=== PATIENT | male | born 1990 | race Caucasian/White ===

== ENCOUNTER 2022-06-15 12:09 | Emergency (ER) | payer OTHER, SELFPAY ==
[2022-06-15] MEDS ORDERED: MORPHINE 2 MG/ML SYR ONE (12:41)
[2022-06-15] MEDS ORDERED: ONDANSETRON 4 MG/2 ML VIAL ONE (12:42)
[2022-06-15] MEDS ORDERED: KETOROLAC 30 MG/ML INJ ONE (12:42)
--- NOTE | 2022-06-15 12:46 | RAD REPORT ---
EXAM DESCRIPTION: CT - Abdomen Pelvis Wo Contrast - 06/15/2022 12:33 pm CLINICAL HISTORY: Abdominal pain. sdf COMPARISON: No comparisons TECHNIQUE: CT imaging of the abdomen and pelvis was performed without contrast. Solid organ, bowel a nd vascular assessment is limited due to lack of IV and oral contrast. All CT scans are performed using dose optimization technique as appropriate and may include automated exposure control or mA/KV adjustment according to patient size. FINDINGS: The lower lung putnam are clear. The liver, spleen, pancreas, adrenal glands are within normal limits for a limited non-contrast exami nation. There is a 12 x 7 mm stone in the proximal left ureter resulting in moderate left hydronephrosis. Multiple small calculi are present in the calices of the right kidney. No bowel obstruction, free air, free fluid or abscess. The appendix is normal. The osseous structures are within normal limits. IMPRESSION: 12 x 7 mm calculus is present in the proximal left ureter resulting mild to moderate lef t hydronephrosis. Punctate right nephrolithiasis without hydronephrosis. A limited non-contrast examination was performed as detailed.
[2022-06-15 13:06] LABS: Absolute Lymphocytes (CBC) 1.1 K/uL (0.7-4.9); Lymphocytes % 12.2 % (15.3-44.8); MCV 87.6 fL (80-100); MPV 8.9 fL (7.6-11.3); RBC Red Blood Cell Count 4.69 M/uL (4.33-5.43)
[2022-06-15] MEDS ORDERED: NA CHLORIDE 0.9% 1,000 ML ONE (13:16)
[2022-06-15 13:21] LABS: Albumin 4.5 g/dL (3.4-5.0); Bilirubin Total 1.3 mg/dL (0.2-1.0); Potassium 3.7 mmol/L (3.5-5.1); Protein, Total 8.2 g/dL (6.4-8.2)
[2022-06-15 13:21] LABS: Urine Blood 3+ (Negative); Urine Glucose Negative (Negative); Urine Protein 1+ (Negative); Urine Specific Gravity 1.025 (1.005-1.030)
--- NOTE | 2022-06-15 13:49 | EDPHYS ---
Physician Documentation [facility] Name: Shahid Doty Age: 32 yrs Sex: Male : 1990 Arrival Date: 06/15/2022 Time: 12:12 Bed 8 Private MD: ED Physician Ad Ge HPI: 06/15 13:27 This 32 yrs old Male presents to ER via EMS with complaints of Abdominal Pain.jl9 13:27 The patient presents with abdominal pain right lower quadrant, in the left lower jl9 quadrant. Onset: The symptoms/episode began/occurred this morning. The symptoms do not radiate. Associated signs and symptoms: Pertinent positives: nausea. The symptoms are described as sharp. Modifying factors: The symptoms are alleviated by nothing, the symptoms are aggravated by nothing. Severity of pain: in the emergency department the pain is a 7 / 10. Historical: - Allergies: 12:17 No Known Allergies; em6 - Home Meds: 12:17 None [Active]; em6 - PMHx: 12:17 None; em6 - Immunization history:: Adult Immunizations unknown. - Social history:: Smoking status: unknown. ROS: 13:27 Constitutional: Negative for fever, chills, and weight loss, Eyes: Negative for injury, jl9 pain, redness, and discharge, ENT: Negative for injury, pain, and discharge, Neck: Negative for injury, pain, and swelling, Cardiovascular: Negative for chest pain, palpitations, and edema, Respiratory: Negative for shortness of breath, cough, wheezing, and pleuritic chest pain. 13:27 Back: Negative for injury and pain, : Negative for injury, bleeding, discharge, and swelling, MS/Extremity: Negative for injury and deformity, Skin: Negative for injury, rash, and discoloration, Neuro: Negative for headache, weakness, numbness, tingling, and seizure, Psych: Negative for depression, anxiety, suicide ideation, homicidal ideation, and hallucinations, Allergy/Immunology: Negative for hives, rash, and allergies, Endocrine: Negative for neck swelling, polydipsia, polyuria, polyphagia, and marked weight changes, Hematologic/Lymphatic: Negative for swollen nodes, abnormal bleeding, and unusual bruising. 13:27 Abdomen/GI: Positive for abdominal pain, nausea. Exam: 13:28 Constitutional: This is a well developed, well nourished patient who is awake, alert, jl9 and in no acute distress. Head/Face: Normocephalic, atraumatic. Eyes: Pupils equal round and reactive to light, extra-ocular motions intact. Lids and lashes normal. Conjunctiva and sclera are non-icteric and not injected. Cornea within normal limits. Periorbital areas with no swelling, redness, or edema. ENT: Mucous membranes moist. Neck: Trachea midline, no thyromegaly or masses palpated, and no cervical lymphadenopathy. Supple, full range of motion without nuchal rigidity, or vertebral point tenderness. No Meningismus. Chest/axilla: Normal chest wall appearance and motion. Nontender with no deformity. No lesions are appreciated. Cardiovascular: Regular rate and rhythm with a normal S1 and S2. No gallops, murmurs, or rubs. Normal PMI, no JVD. No pulse deficits. Respiratory: Lungs have equal breath sounds bilaterally, clear to auscultation and percussion. No rales, rhonchi or wheezes noted. No increased work of breathing, no retractions or nasal flaring. Abdomen/GI: Soft, non-tender, with normal bowel sounds. No distension or tympany. No guarding or rebound. No evidence of tenderness throughout. 13:28 Back: No spinal tenderness. No costovertebral tenderness. Full range of motion. Skin: Warm, dry with normal turgor. Normal color with no rashes, no lesions, and no evidence of cellulitis. MS/ Extremity: Pulses equal, no cyanosis. Neurovascular intact. Full, normal range of motion. Neuro: Awake and alert, GCS 15, oriented to person, place, time, and situation. Cranial nerves II-XII grossly intact. Motor strength 5/5 in all extremities. Sensory grossly intact. Cerebellar exam normal. Normal gait. Psych: Awake, alert, with orientation to person, place and time. Behavior, mood, and affect are within normal limits. 13:28 Abdomen/GI: Inspection: abdomen appears normal, Bowel sounds: normal, Palpation: mild abdominal tenderness. Vital Signs: 12:10 BP 135 / 96; Pulse 51; Resp 14; Temp 97.8; Pulse Ox 98% on R/A; Weight 54.43 kg; Height em6 5 ft. 10 in. (177.80 cm); Pain 7/10; 13:15 BP 131 / 102; Pulse 48; Resp 14; Pulse Ox 100% on R/A; em6 12:10 Body Mass Index 17.22 (54.43 kg, 177.80 cm) em6 MDM: 12:13 Patient medically screened. jl9 13:28 Data reviewed: vital signs, nurses notes. jl9 13:32 Response to treatment: the patient's symptoms have resolved after treatment, the jl9 patient's pain is gone, Patient reports being pain free and would like to go home. . 13:47 Counseling: I had a detailed discussion with the patient and/or guardian regarding: the [facility] historical points, exam findings, and any diagnostic results supporting the discharge/admit diagnosis, lab results, radiology results, the need for outpatient follow up, to return to the emergency department if symptoms worsen or persist or if there are any questions or concerns that arise at home, Patient pain free and would like to be discharged. . 06/15 12:25 Order name: CBC with Diff; Complete Time: 13:24 [facility] 06/15 12:25 Order name: CMP; Complete Time: 13:24 [facility] 06/15 12:25 Order name: Lipase; Complete Time: 13:24 [facility] 06/15 12:25 Order name: CT Abd/Pelvis - Without Contrast; Complete Time: 12:50 [facility] 06/15 13:22 Order name: Urine Dipstick-Ancillary; Complete Time: 13:24 [facility] 06/15 12:25 Order name: IV Saline Lock; Complete Time: 13:04 [facility] 06/15 12:25 Order name: Labs collected and sent; Complete Time: 13:05 [facility] 06/15 12:25 Order name: Urine Dipstick-Ancillary (obtain specimen); Complete Time: 13:23 [facility] Administered Medications: 12:40 Drug: Zofran (Ondansetron) 4 mg Route: IVP; Site: right antecubital; em6 13:23 Follow up: Response: No adverse reaction em6 12:40 Drug: Ketorolac 15 mg Route: IVP; Site: right antecubital; em6 13:23 Follow up: Response: No adverse reaction em6 12:40 Drug: morphine 2 mg Route: IVP; Infused Over: 4 mins; Site: right antecubital; em6 13:23 Follow up: Response: No adverse reaction; RASS: Alert and Calm (0) em6 13:10 Drug: NS 0.9% 1000 ml Route: IV; Rate: 125 ml/hr; Site: right antecubital; em6 14:17 Follow up: Response: No adverse reaction; IV Intake: 1000ml em6 Disposition: 18:54 Co-signature as Attending Physician, Ad Ge DO I was immediately available on-site ms3 in the emergency department for consultation in the care of the patient.. Disposition Summary: 06/15/22 13:49 Discharge Ordered Location: Home jl9 Condition: Stable jl9 Diagnosis - Kidney Stone/ Calculus in urethra jl9 Followup: jl9 - With: Private Physician - When: 1 - 2 days - Reason: Recheck today's complaints, Continuance of care, Re-evaluation by your physician Followup: jl9 - With: Sonu Davis MD - When: 1 - 2 days - Reason: Recheck today's complaints, Continuance of care, Re-evaluation by your physician Discharge Instructions: - Discharge Summary Sheet jl9 - Kidney Stones, [id number] jl9 Forms: - Medication Reconciliation Form jl9 - Thank You Letter jl9 - Antibiotic Education jl9 - Prescription Opioid Use jl9 Prescriptions: - ketorolac 10 mg Oral tablet - take 1 tablet by ORAL route every 6 hours As needed for up to 5 days total use; jl9 20 tablet; Refills: 0, Product Selection Permitted - tamsulosin 0.4 mg Oral capsule - take 1 capsule by ORAL route once daily 1/2 hour following the same meal each jl9 day; 14 capsule; Refills: 0, Product Selection Permitted - ondansetron 8 mg Oral tablet,disintegrating - take 1 tablet by ORAL route every 8 hours As needed; 15 tablet; Refills: 0, jl9 Product Selection Permitted Signatures: Dispatcher [employer] EDMS Ad Ge DO DO ms3 Porter Veliz jl9 Yolanda Landry RN RN em6
--- NOTE | 2022-06-15 13:49 | ER ---
Nurse's Notes [facility] Name: Shahid Doty Age: 32 yrs Sex: Male : 1990 Arrival Date: 06/15/2022 Time: 12:12 Bed 8 Private MD: Diagnosis: Kidney Stone/ Calculus in urethra Presentation: 06/15 12:10 Chief complaint: EMS states: "patient got up to restroom and felt LLQ pain currently at em6 a 7 and radiates to left side of pelvis. Patient states sharp pain. patient states bright orange urine. states not taking medication a the moment. no history nor surgical history". 12:10 Coronavirus screen: At this time, the client does not indicate any symptoms associated em6 with coronavirus-19. Ebola Screen: Patient negative for fever greater than or equal to 101.5 degrees Fahrenheit, and additional compatible Ebola Virus Disease symptoms. Initial Sepsis Screen: Does the patient meet any 2 criteria? No. Patient's initial sepsis screen is negative. Does the patient have a suspected source of infection? No. Patient's initial sepsis screen is negative. Risk Assessment: Do you want to hurt yourself or someone else? Patient reports no desire to harm self or others. Onset of symptoms was June 15, 2022. 12:10 Method Of Arrival: EMS: [facility] em6 12:10 Acuity: SHERRIE 3 em6 Triage Assessment: 12:15 General: Appears comfortable, Behavior is calm, cooperative. Pain: Complains of pain in em6 left lower quadrant Pain radiates to pelvis Pain currently is 7 out of 10 on a pain scale. Quality of pain is described as sharp, Pain began 4 hours ago. Is continuous. Historical: - Allergies: 12:17 No Known Allergies; em6 - Home Meds: 12:17 None [Active]; em6 - PMHx: 12:17 None; em6 - Immunization history:: Adult Immunizations unknown. - Social history:: Smoking status: unknown. Screenin:15 Abuse screen: Denies threats or abuse. Nutritional screening: No deficits noted. em6 Tuberculosis screening: No symptoms or risk factors identified. 12:40 Fall Risk IV access (20 points). Total Kaur Fall Scale indicates No Risk (0-24 pts). em6 Assessment: 12:18 General: Appears comfortable, Behavior is calm, cooperative, appropriate for age. Pain: em6 Complains of pain in left lower quadrant Pain radiates to pelvis Pain currently is 7 out of 10 on a pain scale. Quality of pain is described as sharp, Pain began 4 hours ago. Is continuous. Neuro: Murillo Agitation-Sedation Scale (RASS): 0 - Alert and Calm Level of Consciousness is awake, alert, obeys commands, Oriented to person, place, time, situation. Cardiovascular: Reports nausea, Heart tones present Capillary refill < 3 seconds Patient's skin is warm and dry. Respiratory: Airway is patent Respiratory effort is even, unlabored, Respiratory pattern is regular, symmetrical, Breath sounds are clear bilaterally. GI: Abdomen is flat, non-distended, Abd is soft and non tender Reports diarrhea, nausea. : Reports bright orange urine. EENT: No signs and/or symptoms were reported regarding the EENT system. Derm: Musculoskeletal: Circulation, motion, and sensation intact. Range of motion: intact in all extremities. 13:15 Reassessment: Patient appears in no apparent distress at this time. Patient and/or em6 family updated on plan of care and expected duration. Pain level reassessed. Patient is alert, oriented x 3, equal unlabored respirations, skin warm/dry/pink. Patient states symptoms have improved. Vital Signs: 12:10 BP 135 / 96; Pulse 51; Resp 14; Temp 97.8; Pulse Ox 98% on R/A; Weight 54.43 kg; Height em6 5 ft. 10 in. (177.80 cm); Pain 7/10; 13:15 BP 131 / 102; Pulse 48; Resp 14; Pulse Ox 100% on R/A; em6 12:10 Body Mass Index 17.22 (54.43 kg, 177.80 cm) em6 ED Course: 12:12 Patient arrived in ED. em6 12:13 Porter Veliz is PHCP. jl9 12:13 Ad Ge DO is Attending Physician. jl9 12:15 Triage completed. em6 12:16 Arm band placed on. em6 12:17 Patient has correct armband on for positive identification. Bed in low position. Call em6 light in reach. Side rails up X 1. Pulse ox on. NIBP on. Warm blanket given. 12:34 CT Abd/Pelvis - Without Contrast In Process Unspecified. EDMS 12:40 Inserted saline lock: 20 gauge in right antecubital area, using aseptic technique. em6 Blood collected. 13:49 Sonu Davis MD is Referral Physician. jl9 14:05 No provider procedures requiring assistance completed. IV discontinued, intact, em6 bleeding controlled, No redness/swelling at site. Pressure dressing applied. Administered Medications: 12:40 Drug: Zofran (Ondansetron) 4 mg Route: IVP; Site: right antecubital; em6 13:23 Follow up: Response: No adverse reaction em6 12:40 Drug: Ketorolac 15 mg Route: IVP; Site: right antecubital; em6 13:23 Follow up: Response: No adverse reaction em6 12:40 Drug: morphine 2 mg Route: IVP; Infused Over: 4 mins; Site: right antecubital; em6 13:23 Follow up: Response: No adverse reaction; RASS: Alert and Calm (0) em6 13:10 Drug: NS 0.9% 1000 ml Route: IV; Rate: 125 ml/hr; Site: right antecubital; em6 14:17 Follow up: Response: No adverse reaction; IV Intake: 1000ml em6 Medication: 12:17 VIS not applicable for this client. em6 Intake: 14:17 IV: 1000ml; Total: 1000ml. em6 Outcome: 13:49 Discharge ordered by . jl9 14:05 Condition: stable em6 14:05 Discharged to home ambulatory, with family. em6 14:05 Discharge instructions given to patient, family, Instructed on discharge instructions, follow up and referral plans. medication usage, Demonstrated understanding of instructions, follow-up care, medications, Prescriptions given X 3. 14:19 Patient left the ED. em6 Signatures: Dispatcher [employer] EDMS Porter Veliz jl9 Yolanda Landry, RN RN em6 Corrections: (The following items were deleted from the chart) 14:19 14:17 No provider procedures requiring assistance completed. em6 em6 14:19 14:17 IV discontinued, intact, bleeding controlled, No redness/swelling at site. em6 Pressure dressing applied, em6
[2022-06-15 14:24] VITALS: TEMP 97.8
[2022-06-15 14:26] VITALS: BP 131/102; O2SAT 100
== END 2022-06-15 14:19 | disposition home or self-care (01) ==
LOC: ER 12:09
DX: N20.0 Calculus of kidney (principal); N21.1 Calculus in urethra
CPT/HCPCS: 36415; 74176; 80053; 81003; 83690; 85025; 96374; 96375; 99284; J2270; J2405; J7030

== ENCOUNTER 2022-09-30 12:57 | Emergency (ER) | payer SELFPAY ==
--- OUTSIDE RECORDS SUMMARY | 2022-09-30 13:00 | XMS REPORT | Continuity of Care Document ---
:1990 Author Organization [facility] t Address [address] [place] [address] Care Team Providers Name Role Phone PCP, PATIENT DOES NOT HAVE A Primary Care Physician Unavaila SIRI Nguyen Attending Clinician Unavailable Siri Stearns NP Attending Clinician Lui HOLLOWAY Attending Clinician Unavailable Lui Herrera Attending Clinician Doctor Unassigned, [place] Attending Clinician Unavailable Problems Condition Condition Condition Status Onset Resolution Last Treating Co mments Source Name Details Category Date Date Treatment Clinician Date No known No known Disease Unive rs active active ity of problems problems [facility] Allergies, Adverse Reactions, Alerts Allergy Allergy Status Severity Reaction(s) Onset Inactive Treating Comm ents Source Name Type Date Date Clinician NO KNOWN Drug Active Univers ALLERGIE Class ity of S [facility] Social History Social Habit Start Date Stop Date Quantity Comments Source Exposure to 2022-08-08 2022-08-18 Not sure [facility] SARS-CoV-2 (event) 00:00:00 22:53:00 Medica l Branch Sex Ass[birth year] [facility] 00:00:00 00:00:00 Medical Branch Smoking Status Start Date Stop Date Source Tobacco smoking consumption [facility] [place] [facility] unknown Branch Medications Ordered Filled Start Stop Current Ordering Indication Dosage Frequency Signature Comments Components Source Medication Medication Date Date Medication? Clinician (SIG) Name Name HYDROcodone 2021- No 1{tbl} 1 tablet, Univers -acetaminop 12-06 Oral, ity of hen (NORCO 06:45: 05:40 ONCE, 1 [place] 5) 5-325 mg 00 :00 dose, On Medi yonathan tablet 1 Tue Branch tablet 12/06/21 at 0045, ELIEL amoxicillin 2021- No 500mg 500 mg, U nivers (TRIMOX) 12-06 Oral, ity of capsule 500 06:45: 05:40 [place] 1 [place] 00 :[place] dose, On Medical Tue Branch 12/06/21 at 0045, ELIEL
Re ason for Anti-Infec tive: Documented Infection< br>Documen esteban Infection Site: HEENT
D uration of Therapy: Other (see Comments) ibuprofen 2021- No 600mg 600 mg, Uni vers (IBU) 12-06 Oral, ity of tablet 600 06:45: 05:40 ONCE, 1 [place] as mg 00 :00 dose, On Medical Tue Branch 12/06/21 at 0045, ELIEL ibuprofen Yes [id number] 600mg Take 1 U nivers 600 mg 2-21 tablet by ity of tablet 00:00: mouth [place] 00 every 6 Medical (six) Branch hours as needed for Pain (scale 4-6). ibuprofen Yes [id number] 600mg Take 1 U nivers 600 mg 2-21 tablet by ity of tablet 00:00: mouth [place] 00 every 6 Medical (six) Branch hours as needed for Pain (scale 4-6). amoxicillin 2021- No [id number] 500mg Take 1 Univers 500 mg -02 01-04 capsule by ity of capsule 00:00: 05:59 mouth 3 [place] 00 :00 (three) Medical times Branch daily for 10 days. ondansetron Yes [id number] 8mg Take 1 Univers (ZOFRAN) 8 6-07 tablet by ity of mg tablet 00:00: mouth [place] 00 every 8 Medical (eight) Branch hours as needed for Nausea and Vomiting (N/V). ondansetron 2020-0 Yes [id number] 8mg Take 1 Univers (ZOFRAN) 8 6-07 tablet by ity of mg tablet 00:00: mouth [place] 00 every 8 Medical (eight) Branch hours as needed for Nausea and Vomiting (N/V). ondansetron 2020-0 Yes [id number] 8mg Take 1 Univers (ZOFRAN) 8 6-07 tablet by ity of mg tablet 00:00: mouth [place] 00 every 8 Medical (eight) Branch hours as needed for Nausea and Vomiting (N/V). chlorhexidi 2019-0 Yes [id number] 15mL Swish and Univers ne 0.12 % 2-09 spit out ity of mouthwash 00:00: 15 mL 2 [place] 00 (two) Medical times Branch daily. acetaminoph 2019-0 Yes [id number] 1{tbl} Take 1 Univers en-codeine 2-09 tablet by ity of 300-30 mg 00:00: mouth [place] tablet 00 every 4 Medical (four) Branch hours as needed for Pain (scale 7-10). naproxen 2019-0 Yes [id number] 500mg Take 1 Un [place] 500 mg 2-09 tablet by ity of tablet 00:00: mouth 2 [place] 00 (two) Medical times Branch daily with meals. chlorhexidi 2019-0 Yes [id number] 15mL Swish and Univers ne 0.12 % 2-09 spit out ity of mouthwash 00:00: 15 mL 2 [place] 00 (two) Medical times Branch daily. acetaminoph 2019-0 Yes [id number] 1{tbl} Take 1 Univers en-codeine 2-09 tablet by ity of 300-30 mg 00:00: mouth [place] tablet 00 every 4 Medical (four) Branch hours as needed for Pain (scale 7-10). naproxen 2019-0 Yes [id number] 500mg Take 1 Un [place] 500 mg 2-09 tablet by ity of tablet 00:00: mouth 2 [place] 00 (two) Medical times Branch daily with meals. chlorhexidi 2019-0 Yes [id number] 15mL Swish and Univers ne 0.12 % 2-09 spit out ity of mouthwash 00:00: 15 mL 2 [place] 00 (two) Medical times Branch daily. acetaminoph 2019-0 Yes [id number] 1{tbl} Take 1 Univers en-codeine 2-09 tablet by ity of 300-30 mg 00:00: mouth [place] tablet 00 every 4 Medical (four) Branch hours as needed for Pain (scale 7-10). naproxen Yes [id number] 500mg Take 1 Un [place] 500 mg 2-09 tablet by ity of tablet 00:00: mouth 2 [place] 00 (two) Medical times Branch daily with meals. NEXIUM 10 Yes AM Univers MG ORAL 2-06 ity of SUDR 21:06: [address] WELLBUTRIN Yes BID Univers 75 MG ORAL 2-06 ity of TAB 21:06: [address] NEXIUM 10 Yes AM Univers MG ORAL 2-06 ity of SUDR 21:06: [address] WELLBUTRIN Yes BID Univers 75 MG ORAL 2-06 ity of TAB 21:06: [address] NEXIUM 10 Yes AM Univers MG ORAL 2-06 ity of SUDR 21:06: [address] WELLBUTRIN Yes BID Univers 75 MG ORAL 2-06 ity of TAB 21:06: [address] Vital Signs Vital Name Observation Time Observation Value Comments Source Systolic blood 2022-08-19 03:51:00 117 mm[Hg] Univer sity of pressure [facility] Diastolic blood 2022-08-19 03:51:00 87 mm[Hg] Unive rsity [facility] Heart rate 2022-08-19 03:51:00 50 /min [facility] Body temperature 2022-08-19 03:51:00 36.61 Alicia [facility] Respiratory rate 2022-08-19 03:51:00 16 /min [facility] Body height 2022-08-19 03:51:00 175.3 cm [facility] Body weight 2022-08-19 03:51:00 54.432 kg [facility] BMI 2022-08-19 03:51:00 17.72 kg/m2 [facility] Oxygen saturation in 2022-08-19 03:51:00 99 /min [facility] blood by [facility] Pulse oximetry Branch Systolic blood 2021-12-06 04:44:00 122 mm[Hg] Univer sity of pressure [facility] Diastolic blood 2021-12-06 04:44:00 87 mm[Hg] Unive rsity of pressure [facility] Heart rate 2021-12-06 04:44:00 77 /min [facility] Body temperature 2021-12-06 04:44:00 37.11 Alicia [facility] 2021-12-06 04:44:00 16 /min [facility] Body height 2021-12-06 04:44:00 175.3 cm [facility] Body weight 2021-12-06 04:44:00 53.524 kg [facility] BMI 2021-12-06 04:44:00 17.43 kg/m2 [facility] Oxygen saturation in 2021-12-06 04:44:00 98 /min [facility] blood by [facility] Pulse oximetry Branch Procedures Procedure Date / Time Performed Performing Clinician Sour e CONSENT/REFUSAL FOR 2022-08-19 03:42:08 [facility] Branch TREATMENT NOTICE OF PRIVACY 2021-12-06 04:33:18 Doctor Unassigned, No Univ [facility] PRACTICES Name Medical Branch CONSENT/REFUSAL FOR 2021-12-06 04:33:04 [facility], [facility] Branch TREATMENT Encounters Start End Encounter Admission Attending Care Care Encounter Source Date/Time Date/Time Type Type Clinicians Facility Department ID 2022-08-18 2022-08-18 [id number] Univers 23:06:00 23:26:00 SIRI moore of [facility] 2022-08-18 2022-08-18 [facility] [id number] Univers 23:06:00 23:26:00 [id number] [id number] [facility] 084 Branch 2021-12-05 2021-12-05 Emergency X Lui HOLLOWAY [facility] ERT [id number] Univers 22:49:00 23:47:00 ity of [facility] 2021-12-05 2021-12-05 Emergency Lui Holloway [facility] [id number] Univers 22:49:00 23:47:00 Ernestina CASILLAS [id number] i ty of [place] [id number] [place] [facility] [id number] [facility] 084 Branch 2021-12-05 2021-12-05 Orders Doctor SMILEY [id number] Univers 00:00:00 00:00:00 Only Unassigned, BENJAMIN [id number] ity of [place] [facility] [id number] [place] [id number] [facility] 009 Branch 2020-03-21 2020-03-21 Emergency X [facility] ERT [id number] Univers 22:02:00 22:02:00 ity of [facility] Results This patient has no known results.
[2022-09-30] MEDS ORDERED: MORPHINE 4 MG/ML SYR ONE (13:21)
[2022-09-30] MEDS ORDERED: NA CHLORIDE 0.9% 1,000 ML ONE (13:22)
[2022-09-30] MEDS ORDERED: ONDANSETRON 4 MG/2 ML VIAL ONE ×2 (13:22→14:42)
[2022-09-30 13:32] LABS: Urine Blood 3+ (Negative); Urine Glucose Negative (Negative); Urine Protein 1+ (Negative); Urine Specific Gravity >=1.030 (1.005-1.030)
[2022-09-30 13:39] LABS: Lymphocytes % 10.7 % (15.3-44.8); MCV 86.3 fL (80-100); MPV 8.5 fL (7.6-11.3); RBC Red Blood Cell Count 5.09 M/uL (4.33-5.43)
[2022-09-30 13:45] LABS: Urine Bacteria None Seen /HPF (<20); Urine Mucus 2+ /HPF (None Seen); Urine RBC >50 /HPF (None Seen)
[2022-09-30 13:56] LABS: Bilirubin Total 0.7 mg/dL (0.2-1.0); Potassium 3.8 mmol/L (3.5-5.1)
--- NOTE | 2022-09-30 14:40 | RAD REPORT ---
EXAM DESCRIPTION: CT - Stone Protocol - 09/30/2022 2:10 pm CLINICAL HISTORY: Abdominal pain. Flank pain COMPARISON: 2020 TECHNIQUE: Computed axial tomography of the abdomen pelvis was obtained without oral or IV contrast. Lack of IV and oral contrast limits evaluation of solid organs, appendix, bowel, and vessels. Rojas l reformatted images were obtained and reviewed. All CT scans are performed using dose optimization technique as appropriate and may include automated exposure control or mA/KV adjustment according to patient size. FINDINGS: Tiny right renal calculi. No hydronephrosis. Left renal calculus is not seen. Mild to moderate left hydronephrosis. Left ureter is dilated. 11 mil limeter calculus proximal to mid left ureter. The liver, spleen, pancreas and adrenals appear grossly normal There is no evidence of diverticulitis. The appendix appears normal IMPRESSION: 11 millimeter calculus proximal to mid left ureter resulting in mild to moderate left hy dronephrosis
[2022-09-30] MEDS ORDERED: KETOROLAC 30 MG/ML INJ ONE (14:42)
[2022-09-30] MEDS ORDERED: CEFTRIAXONE 1000 MG/VIAL ONE (14:42)
[2022-09-30 15:10] LABS: SARS-CoV-2 Antigen Rapid Res Negative (Negative)
[2022-09-30] MEDS ORDERED: PROMETHAZINE INJ 25 MG/ML AMP ONE (15:15)
--- NOTE | 2022-09-30 16:58 | ER ---
Nurse's Notes [facility] Name: Shahid Doty Age: 32 yrs Sex: Male : 1990 Arrival Date: 09/30/2022 Time: 12:59 Bed 11 Private MD: Diagnosis: Calculus of ureter;Unspecified hydronephrosis;UTI/ Urinary tract infection, site not specified Presentation: 09/30 13:15 Chief complaint: Patient states: R sided abdominal pain radiating to groin, states that ph he has been having intermittent pain x 1 week but pain became worse last night, also reports N/V and difficulty urinating. Coronavirus screen: Vaccine status: Patient reports being unvaccinated. Ebola Screen: No symptoms or risks identified at this time. Initial Sepsis Screen: Does the patient meet any 2 criteria? No. Patient's initial sepsis screen is negative. Does the patient have a suspected source of infection? No. Patient's initial sepsis screen is negative. Risk Assessment: Do you want to hurt yourself or someone else? Patient reports no desire to harm self or others. Onset of symptoms was September 30, 2022. 13:15 Method Of Arrival: Ambulatory ph 13:15 Acuity: SHERRIE 3 ph Triage Assessment: 13:19 General: Appears in no apparent distress. uncomfortable, Behavior is calm, cooperative, ph appropriate for age. Pain: Complains of pain in left lower quadrant Pain radiates to pelvis. Neuro: Level of Consciousness is awake, alert, obeys commands, Oriented to person, place, time, situation. GI: Reports lower abdominal pain, nausea, vomiting. : Reports pain in left in suprapubic area lower quadrant(s). Historical: - Allergies: 13:20 No Known Allergies; ph - PMHx: 13:20 None; ph - PSHx: 13:20 None; ph - Immunization history:: Adult Immunizations unknown. - Social history:: Smoking status: Patient denies any tobacco usage or history of. Patient uses street drugs, marijuana. Screenin:19 [facility] ED Fall Risk Assessment (Adult) History of falling in the last 3 months, ph including since admission No falls in past 3 months (0 pts) Confusion or Disorientation No (0 pts) Intoxicated or Sedated No (0 pts) Impaired Gait No (0 pts) Mobility Assist Device Used No (0 pt) Altered Elimination No (0 pt) Score/Fall Risk Level 0 - 2 = Low Risk Maintained a safe environment, Hourly rounding (assess needs \T\ fall precautionary measures) done. Abuse screen: Denies threats or abuse. Denies injuries from another. Nutritional screening: No deficits noted. Tuberculosis screening: No symptoms or risk factors identified. 16:02 Fall Risk Total Kaur Fall Scale indicates No Risk (0-24 pts). hb Assessment: 13:28 General: Appears in no apparent distress. uncomfortable, Behavior is calm, cooperative. hb Pain: Pain currently is 10 out of 10 on a pain scale. Neuro: Level of Consciousness is awake, alert, obeys commands, Oriented to person, place, time, situation. Cardiovascular: Patient's skin is warm and dry. Respiratory: Respiratory effort is even, unlabored, Respiratory pattern is regular, symmetrical. GI: Reports right sided abdominal pain that radiates to right groin. : No signs and/or symptoms were reported regarding the genitourinary system. EENT: No signs and/or symptoms were reported regarding the EENT system. Derm: Skin is pink, warm \T\ dry. Musculoskeletal: No signs and/or symptoms reported regarding the musculoskeletal system. 14:26 Reassessment: Patient appears in no apparent distress at this time. Patient and/or hb family updated on plan of care and expected duration. Pain level reassessed. Patient is alert, oriented x 3, equal unlabored respirations, skin warm/dry/pink. 14:45 Reassessment: Pt actively vomiting, c/o pain 10/10. APRON CLEANER Lisa notified, medicated as hb ordered. 16:00 Reassessment: Patient appears in no apparent distress at this time. Patient and/or hb family updated on plan of care and expected duration. Pain level reassessed. Patient is alert, oriented x 3, equal unlabored respirations, skin warm/dry/pink. 17:00 Reassessment: Patient appears in no apparent distress at this time. Patient and/or hb family updated on plan of care and expected duration. Pain level reassessed. Patient is alert, oriented x 3, equal unlabored respirations, skin warm/dry/pink. 18:00 Reassessment: Patient appears in no apparent distress at this time. Patient and/or hb family updated on plan of care and expected duration. Pain level reassessed. Patient is alert, oriented x 3, equal unlabored respirations, skin warm/dry/pink. Vital Signs: 13:15 BP 142 / 104; Pulse 76; Resp 18; Temp 97.0; Pulse Ox 100% on R/A; Weight 54.43 kg; ph Height 5 ft. 9 in. (175.26 cm); 14:00 BP 136 / 86; Pulse 77; Resp 15; Pulse Ox 99% on R/A; hb 15:00 BP 129 / 90; Pulse 88; Resp 16; Pulse Ox 100% on R/A; Pain 7/10; hb 17:00 BP 128 / 88; Pulse 86; Resp 16; Pulse Ox 99% on R/A; hb 13:15 Body Mass Index 17.72 (54.43 kg, 175.26 cm) ph ED Course: 12:59 Patient arrived in ED. rg4 13:05 Niru Moore FNP-C is PSYCHIATRICP. kb 13:05 Gaurav Kaiser MD is Attending Physician. kb 13:18 Triage completed. ph 13:18 Sofia Ward, RN is Primary Nurse. hb 13:19 Arm band placed on. ph 13:20 Patient has correct armband on for positive identification. Bed in low position. Call ph light in reach. Side rails up X 1. Door closed. Noise minimized. Warm blanket given. 13:24 Inserted saline lock: 20 gauge in right antecubital area, using aseptic technique. hb Blood collected. 14:12 CT Stone Protocol In Process Unspecified. EDMS 14:49 initiated a transfer with Francis Chavez from the [facility] [place]. eb 14:52 SARS RAPID Sent. hb 16:[address] Vasquez the urologist television audio engineer for [facility] with Malika [employer] for eb patient transfer consultation. 16:39 connected the hospitalist television audio engineer for [facility] with Niru [employer] for patient transfer eb consultation. 16:41 administrative approval given by Francis Chavez/ patient has been accepted to [facility] RM [id number]/ Dr. Héctor Hubbard has accepted the patient in transfer/ report to be called to [phone]. 17:55 US Scrotum Testicles In Process Unspecified. EDMS 18:06 No provider procedures requiring assistance completed. IV discontinued, intact, hb bleeding controlled, No redness/swelling at site. Administered Medications: 13:27 Drug: NS 0.9% 1000 ml Route: IV; Rate: 1 bolus; Site: right antecubital; hb 14:40 Follow up: Response: No adverse reaction; IV Status: Completed infusion; IV Intake: hb 1000ml 13:27 Drug: Zofran (Ondansetron) 4 mg Route: IVP; Site: right antecubital; hb 14:00 Follow up: Response: No adverse reaction hb 13:28 Drug: morphine 4 mg Route: IVP; Infused Over: 4 mins; Site: right antecubital; hb 14:00 Follow up: Response: No adverse reaction hb 14:47 Drug: Ketorolac 15 mg Route: IVP; Site: right antecubital; hb 15:24 Follow up: Response: No adverse reaction hb 14:47 Drug: Zofran (Ondansetron) 4 mg Route: IVP; Site: right antecubital; hb 15:23 Follow up: Response: No adverse reaction hb 14:47 Drug: Rocephin (cefTRIAXone) 1 grams Route: IV; Rate: calculated rate; Site: right hb antecubital; 15:00 Follow up: Response: No adverse reaction; IV Status: Completed infusion; IV Intake: 10mlhb 15:15 Drug: Phenergan (promethazine) 25 mg Route: IM; Site: right deltoid; hb 16:00 Follow up: Response: No adverse reaction hb Medication: 13:21 VIS not applicable for this client. ph Intake: 14:40 IV: 1000ml; Total: 1000ml. hb 15:00 IV: 10ml; Total: 1010ml. hb Outcome: 16:57 ER care complete, transfer ordered by MD. avendaño 18:06 Transferred by ground EMS to [facility]. hb 18:06 Condition: stable 18:06 Instructed on the need for transfer, Demonstrated understanding of instructions. 18:06 Patient left the ED. hb Signatures: Dispatcher [employer] EDMS Niru Moore, Althea Escoto RN RN ph Baxter, Heather, RN RN Jayna Artis Jaqueline Lowe Corrections: (The following items were deleted from the chart) 13:16 Phenergan (promethazine) 25 mg IM in right deltoid hb hb 17:59 14:00 Response: No adverse reaction ph hb
--- NOTE | 2022-09-30 16:58 | EDPHYS ---
Physician Documentation [facility] Name: Shahid Doty Age: 32 yrs Sex: Male : 1990 Arrival Date: 09/30/2022 Time: 12:59 Bed 11 Private MD: ED Physician Gaurav Kaiser HPI: 09/30 13:13 This 32 yrs old Male presents to ER via Unassigned with complaints of Possible Kidney kb Stone, Vomiting. 13:13 The patient presents with scrotal pain, of the left side. Onset: The symptoms/episode kb began/occurred this morning. Modifying factors: The symptoms are alleviated by nothing, the symptoms are aggravated by nothing. Associated signs and symptoms: Pertinent positives: abdominal pain, nausea, vomiting, Pertinent negatives: constipation, diarrhea, dysuria, fever, hematuria. Severity of symptoms: At their worst the symptoms were moderate, in the emergency department the symptoms are unchanged. The patient has experienced a previous episode. The patient has not recently seen a physician. Pt reports left testicular pain that is sharp. States it started "a while ago" but got worse this morning. Reports pain radiates into left groin. States he was told this pain was due to a kidney stone when he was evaluated for it in June. . Historical: - Allergies: 13:20 No Known Allergies; ph - PMHx: 13:20 None; ph - PSHx: 13:20 None; ph - Immunization history:: Adult Immunizations unknown. - Social history:: Smoking status: Patient denies any tobacco usage or history of. Patient uses street drugs, marijuana. ROS: 13:14 Constitutional: Negative for fever, chills, and weight loss. kb 13:14 : Positive for testicular pain 13:14 All other systems are negative. 13:14 Abdomen/GI: Positive for abdominal pain, nausea and vomiting. kb Exam: 13:14 Constitutional: This is a well developed, well nourished patient who is awake, alert, kb and in no acute distress. Head/Face: Normocephalic, atraumatic. ENT: Moist Mucous membranes Cardiovascular: Regular rate and rhythm with a normal S1 and S2. No gallops, murmurs, or rubs. No pulse deficits. Respiratory: Respirations even and unlabored. No increased work of breathing. Talking in full sentences Back: No spinal tenderness. No costovertebral tenderness. Full range of motion. Skin: Warm, dry with normal turgor. Normal color. MS/ Extremity: Pulses equal, no cyanosis. Neurovascular intact. Full, normal range of motion. Neuro: Awake and alert, GCS 15, oriented to person, place, time, and situation. Moves all extremities. Normal gait. Psych: Awake, alert, with orientation to person, place and time. Behavior, mood, and affect are within normal limits. 13:14 Abdomen/GI: Inspection: abdomen appears normal, Bowel sounds: normal, Palpation: soft, in all quadrants, mild abdominal tenderness, in the left lower quadrant. Vital Signs: 13:15 BP 142 / 104; Pulse 76; Resp 18; Temp 97.0; Pulse Ox 100% on R/A; Weight 54.43 kg; ph Height 5 ft. 9 in. (175.26 cm); 14:00 BP 136 / 86; Pulse 77; Resp 15; Pulse Ox 99% on R/A; hb 15:00 BP 129 / 90; Pulse 88; Resp 16; Pulse Ox 100% on R/A; Pain 7/10; hb 17:00 BP 128 / 88; Pulse 86; Resp 16; Pulse Ox 99% on R/A; hb 13:15 Body Mass Index 17.72 (54.43 kg, 175.26 cm) ph MDM: 13:09 Patient medically screened. kb 13:15 Data reviewed: vital signs, nurses notes. Data interpreted: Pulse oximetry: on room air kb is 100 %. Interpretation: normal. 14:48 Counseling: I had a detailed discussion with the patient and/or guardian regarding: the kb historical points, exam findings, and any diagnostic results supporting the discharge/admit diagnosis, lab results, radiology results, the need to transfer to another facility, [facility] does not immediately have the required specialist. 16:30 ED course: Dr Vasquez accepts pt for consult at [facility]. kb 16:55 ED course: Pt accepted by hospitalist to [facility]. kb 09/30 13:10 Order name: CBC with Diff; Complete Time: 13:50 kb 09/30 13:10 Order name: CMP; Complete Time: 14:06 kb 09/30 13:10 Order name: Lipase; Complete Time: 14:06 kb 09/30 13:27 Order name: Urine Microscopic Only; Complete Time: 13:50 kb 09/30 13:32 Order name: Urine Dipstick-Ancillary; Complete Time: 13:50 EDMS 09/30 13:48 Order name: Urine Culture EDMS 09/30 13:10 Order name: US Scrotum Testicles kb 09/30 13:10 Order name: CT Stone Protocol; Complete Time: 14:45 kb 09/30 14:48 Order name: SARS RAPID; Complete Time: 15:11 kb 09/30 13:10 Order name: IV Saline Lock; Complete Time: 13:28 kb 09/30 13:10 Order name: Labs collected and sent; Complete Time: 13:28 kb 09/30 13:10 Order name: Urine Dipstick-Ancillary (obtain specimen); Complete Time: 13:28 kb Administered Medications: 13:27 Drug: NS 0.9% 1000 ml Route: IV; Rate: 1 bolus; Site: right antecubital; hb 14:40 Follow up: Response: No adverse reaction; IV Status: Completed infusion; IV Intake: hb 1000ml 13:27 Drug: Zofran (Ondansetron) 4 mg Route: IVP; Site: right antecubital; hb 14:00 Follow up: Response: No adverse reaction hb 13:28 Drug: morphine 4 mg Route: IVP; Infused Over: 4 mins; Site: right antecubital; hb 14:00 Follow up: Response: No adverse reaction hb 14:47 Drug: Ketorolac 15 mg Route: IVP; Site: right antecubital; hb 15:24 Follow up: Response: No adverse reaction hb 14:47 Drug: Zofran (Ondansetron) 4 mg Route: IVP; Site: right antecubital; hb 15:23 Follow up: Response: No adverse reaction hb 14:47 Drug: Rocephin (cefTRIAXone) 1 grams Route: IV; Rate: calculated rate; Site: right hb antecubital; 15:00 Follow up: Response: No adverse reaction; IV Status: Completed infusion; IV Intake: 10mlhb 15:15 Drug: Phenergan (promethazine) 25 mg Route: IM; Site: right deltoid; hb 16:00 Follow up: Response: No adverse reaction hb Disposition: 18:28 Co-signature as Attending Physician, Gaurav Kaiser MD. rn Disposition Summary: 09/30/22 16:57 Transfer Ordered Transfer Location: [facility] kb Reason: Higher level of care kb Condition: Stable kb Problem: new kb Symptoms: are unchanged kb Accepting Physician: Dr Héctor Hubbard(09/30/22 18:06) tino Diagnosis - Calculus of ureter kb - Unspecified hydronephrosis kb - UTI/ Urinary tract infection, site not specified kb Forms: - Medication Reconciliation Form kb - SBAR form kb Signatures: Dispatcher [employer] EDMS Niru Moore, SCULPTURE INSTRUCTOR-C SCULPTURE INSTRUCTOR-CkGaurav Brady MD MD rn Hall, Patricia, RN RN Sofia Ward RN RN Jaqueline Lowe Corrections: (The following items were deleted from the chart) 17:16 16:57 Dr jarocho cotton 18:06 17:16 Dr Héctor cotton
--- NOTE | 2022-09-30 18:21 | RAD REPORT ---
EXAM DESCRIPTION: US - Scrotum Testicles - 09/30/2022 5:53 pm CLINICAL HISTORY: Testicular pain COMPARISON: None FINDINGS: Right testicle measures 3.2 x 3.3 x 2.6 centimeters. Echotexture is homogeneous. Normal bl ood flow Left testicle measures 4.4 x 2.9 x 2.5 centimeters. Echotexture is homogeneous. Normal blood flow The epididymides are normal in size and echotexture. Normal blood flow is seen. IMPRESSION: Unremarkable exam
[2022-09-30 18:44] VITALS: TEMP 97
[2022-09-30 18:46] VITALS: BP 129/90; O2SAT 100
== END 2022-09-30 18:06 | disposition short-term general hospital (02) ==
LOC: ER 12:57
DX: N20.1 Calculus of ureter (principal); N39.0 Urinary tract infection, site not specified; N13.30 Unspecified hydronephrosis
CPT/HCPCS: 36415; 74176; 76377; 76870; 80053; 81003; 81015; 83690; 85025; 87086; 87088; 87811; 96361; 96372; 96374; 96375; 99285; J2405; J2550; J7030